=== PATIENT | female | born 1945 | race Caucasian/White ===

== ENCOUNTER 2021-07-06 22:04 | Emergency (ER) | payer SELFPAY ==
[~2021-07-06] VITALS: Ht 165.1 cm; Wt 86.2 kg
--- NOTE | 2021-07-06 22:20 | NUR ---
PT [id number] C/O PALPITATIONS SINCE 12PM WITH HX OF AFIB. PT ALERT AND ORIENTED X3. PT AMBULATES WITH WALKER. POST HIP REPLACMENT ON SUNDAY. PT PRESENTS WITH NON LABORED BREATHING. PATIENT PLACED ON A MONITOR.
--- NOTE | 2021-07-06 22:50 | NUR ---
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
[2021-07-06] MEDS ORDERED: DILTIAZEM HCL 50 MG IV ONE (22:53)
[2021-07-06 22:58] LABS: BASOPHILS % (AUTO) 0.4 % (0.0-2.0); HEMATOCRIT 34 % (33-45); LYMPHOCYTES # (AUTO) 1.3 K/uL (0.8-4.8); LYMPHOCYTES % (AUTO) 11.9 % (20.0-44.0); MEAN CORPUSCULAR HGB CONC 33 g/dl (31.0-36.0); MEAN CORPUSCULAR VOLUME 91 fL (82-100); MONOCYTES # (AUTO) 1.1 K/uL (0.1-1.30); MONOCYTES % (AUTO) 10.7 % (2.0-12.0); NEUTROPHILS # (AUTO) 7.9 K/uL (1.8-8.9); PLATELET COUNT (AUTO) 186 K/uL (150-450); RED BLOOD CELL COUNT(AUTO) 3.73 MIL/uL (4.0-5.2); WHITE BLOOD COUNT (AUTO) 10.7 K/uL (4.3-11.0)
[2021-07-06] MEDS ORDERED: DILTIAZEM HCL 50 MG IV IV ONE (23:00)
[2021-07-06 23:10] LABS: CALCIUM, SERUM 8.7 mg/dL (8.5-10.1); CARBON DIOXIDE 26 mmol/L (21-32); CHLORIDE 110 mmol/L (98-107); GLUCOSE 110 mg/dL (74-106); SODIUM SERUM 142 mmol/L (136-145); UREA NITROGEN, BLOOD 18 mg/dL (7-18)
[2021-07-06] MEDS ORDERED: IV NS 0.9% 250 ML IV ONE (23:23)
[2021-07-06] MEDS ORDERED: IOHEXOL-350 100 ML VIAL IV ONE (23:23)
[2021-07-06] MEDS ORDERED: CT SWABBABLE VALVE TRANS SET 1 EA INFUS.SET MC ONE (23:23)
[2021-07-06 23:32] LABS: ALANINE AMINOTRANSFERASE 20 U/L (12-78); ALBUMIN 2.9 g/dL (3.4-5.0); ALKALINE PHOSPHATASE 49 U/L (46-116); ASPARTATE AMINOTRANSFERASE 23 U/L (15-37); BILIRUBIN,DIRECT 0.1 mg/dL (0.0-0.2); BILIRUBIN,TOTAL 0.3 mg/dL (0.2-1.0); TOTAL PROTEIN, SERUM 6.3 g/dL (6.4-8.2)
--- NOTE | 2021-07-06 23:45 | NUR ---
BACK FROM CT
[2021-07-07 01:10] VITALS: BP 128/80
--- NOTE | 2021-07-07 01:10 | NUR ---
Patient discharged to home in stable condition. Written and verbal after care instructions given. Patient verbalizes understanding of instruction.
--- NOTE | 2021-07-07 01:17 | NUR ---
[facility] ETA 30-40 MINS.
--- NOTE | 2021-07-07 01:46 | NUR ---
PATIENT BEING TRANSFERRED HOME VIA AMBULANCE IN STABLE CONDITION.
== END 2021-07-07 02:45 | disposition home or self-care (01) ==
LOC: ER 22:16
DX: I48.91 Unspecified atrial fibrillation (principal); Z98.890 Other specified postprocedural states; Z88.8 Allergy status to other drugs, medicaments and biological substances; Z60.2 Problems related to living alone
CPT/HCPCS: 36415; 71045; 71275; 80048; 80076; 83880; 84484; 85025; 85730; 93005; 99285; J7050; Q9967; J3490